=== PATIENT | male | born 1980 | race Caucasian/White ===

== ENCOUNTER 2023-08-24 16:43 | Emergency (ER) | payer OTHER ==
[~2023-08-24] VITALS: Ht 182.9 cm; Wt 96.1 kg
[2023-08-24 16:54] VITALS: BP 00/00
--- NOTE | 2023-08-24 22:53 | EKG ---
[facility] [address] [facility] [place] [address] Signed Sinus tachycardia Otherwise normal ECG No previous ECGs available Confirmed by Dander Blevins MD () on 08/24/2023 10:53:13 PM Electronically Signed By: DANDRE BLEVINS MD 08/24/23 2253 PATIENT NAME: AMNA MARTIN Electrocardiogram DATE OF : 80 PHYSICIAN: DANDRE BLEVINS MD REPORT #: [id number] REPORT IS CONFIDENTIAL AND NOT TO BE RELEASED WITHOUT AUTHORIZATION
== END 2023-08-24 16:54 | disposition left against medical advice (07) ==
LOC: ED 16:43
DX: R07.9 Chest pain, unspecified (principal); R06.02 Shortness of breath; F41.9 Anxiety disorder, unspecified; Z53.21 Procedure and treatment not carried out due to patient leaving prior to being seen by health care provider
CPT/HCPCS: 93005; 93010